=== PATIENT | female | born 1990 | race Caucasian/White ===

== ENCOUNTER 2020-03-20 06:52 | Inpatient (IN) | payer OTHER ==
[2020-03-20] MEDS ORDERED: CARBOPROST TROMETHAMINE 250 MCG/ML 1 ML AMP IM PRN (07:12)
[2020-03-20] MEDS ORDERED: TERBUTALINE 1 MG/ML VIAL SQ PRN (07:12)
[2020-03-20] MEDS ORDERED: METHYLERGONOVINE 0.2 MG/ML 1 ML AMP IM PRN (07:12)
[2020-03-20] MEDS ORDERED: OXYTOCIN 10 UNIT/ML 1 ML VIAL IM PRN (07:12)
[2020-03-20] MEDS ORDERED: LIDOCAINE 0.5% (PF) 5 MG/ML (50 ML SDV) SQ PRN (07:12)
[2020-03-20] MEDS: LACTATED RINGERS 1,000 ML IV SCH ×2 (07:41→08:11)
[2020-03-20 08:12] LABS: Basophils # (A) 0.1 k/uL (0-0.2); Basophils % (A) 0 %; Eosinophils # (A) 0.1 k/uL (0-0.7); Eosinophils % (A) 0 %; HCT 38.5 % (34.0-46.0); HGB 12.6 gm/dL (11.4-16.0); Lymphocytes # (A) 2.5 k/uL (1.0-4.8); Lymphocytes % (A) 9 %; MCH 30.6 pg (25.0-35.0); MCHC 32.7 g/dL (31.0-37.0); MCV 93.7 fL (80.0-100.0); Mean Platelet Volume 8.3; Monocytes # (A) 1.1 k/uL (0-1.0); Monocytes % (A) 4 %; Neutrophils # (A) 22.6 k/uL (1.3-7.7); Neutrophils % (A) 85 %; Platelet Count 369 k/uL (150-450); RBC 4.11 m/uL (3.80-5.40); RDW 13.9 % (11.5-15.5); WBC 26.6 k/uL (3.8-10.6)
[2020-03-20] MEDS ORDERED: ROPIVACAINE 100 MG, fentaNYL (PF) 200 MCG in SODIUM CHLORIDE 0.9% 76 ML EPIDURAL ONE (08:26)
[2020-03-20] MEDS ORDERED: OXYTOCIN 30 UNITS/500 ML NS 30 UNIT in SALINE 1 500ML.BAG IV SCH (10:15)
[2020-03-20] MEDS ORDERED: CLINDAMYCIN 900 MG in DEXTROSE 5% IN WATER 50 ML IVPB SCH ×2 (10:30)
[2020-03-20] MEDS ORDERED: BUTORPHANOL 1 MG/ML 1 ML VIAL IV PRN (11:23)
[2020-03-20] MEDS ORDERED: HYDROcodone/APAP 5-325MG 1 EACH TAB PO PRN (13:03)
[2020-03-20] MEDS ORDERED: BENZOCAINE/MENTHOL SPRAY 1 GM/SPRAY AEROSOL TOPICAL PRN (13:03)
[2020-03-20] MEDS ORDERED: diphenhydrAMINE 50 MG/ML 1 ML VIAL IVP PRN ×2 (13:03)
[2020-03-20] MEDS ORDERED: MEASLES-MUMPS-RUBELLA VACC/PF 12,500 UNIT/0.5 ML VIAL SQ ONE (13:03)
[2020-03-20] MEDS ORDERED: diphenhydrAMINE 25 MG CAP PO PRN (13:03)
[2020-03-20] MEDS ORDERED: diphenhydrAMINE 50 MG CAP PO PRN (13:03)
[2020-03-20] MEDS ORDERED: ACETAMINOPHEN TAB 325 MG TAB PO PRN (13:03)
[2020-03-20] MEDS ORDERED: IBUPROFEN 600 MG TAB PO PRN (13:03)
[2020-03-20] MEDS ORDERED: HYDROCORTISONE 2.5% RECTAL CREAM 30 GM TUBE RECTAL PRN (13:03)
[2020-03-20] MEDS ORDERED: LANOLIN CREAM 5 GM TUBE TOPICAL PRN (13:03)
[2020-03-20] MEDS ORDERED: ZOLPIDEM 5 MG TAB PO PRN (13:03)
[2020-03-20] MEDS ORDERED: SIMETHICONE 80 MG CHEWABLE PO PRN (13:03)
[2020-03-20] MEDS ORDERED: WITCH HAZEL 1 EACH MED..PAD TOPICAL PRN (13:03)
--- NOTE | 2020-03-20 13:05 | P.HPOB ---
History of Present Illness H&P Date: 03/20/20 Chief Complaint: Intrauterine at term: Active labor Patient is a 29-year-old at 39 weeks gestation who arrived in active labor. Her cervix was dilated to 5 cm and she was admitted for labor. Artificial rupture membranes was performed and clear fluid is noted. A category 1 tracing is noted and she is luz every approximately 4 minutes. Her Precis course was, complicated by an episode of throwing up blood and she was seen by GI and was started on Protonix and Keflex. She continued this through the remainder of the and did not have any other significant issues. Her course otherwise remained unremarkable. Pertinent labs A+ blood type Rh and it was negative. Rubella is nonimmune. Hepatitis B surface antigen/RPR/quadruple screen are all negative. All questions are answered for her and she plans to use epidural for analgesia. Past Medical History Past Medical History: No Reported History History of Any Multi-Drug Resistant Organisms: None Reported Past Surgical History: Orthopedic Surgery Past Anesthesia/Blood Transfusion Reactions: No Reported Reaction Past Psychological History: No Psychological Hx Reported Smoking Status: Current every day smoker Past Alcohol Use History: None Reported Past Drug Use History: None Reported - Past Family History Father History Unknown: Yes Mother History Unknown: Yes Medications and Allergies Home Medications Medication Instructions Recorded Confirmed Type Pnv No.95/Ferrous Fum/Folic AC 1 each PO DAILY 03/20/20 03/20/20 History [ Multivitamin Tablet] Allergies Allergy/AdvReac Type Severity Reaction Status Date / Time Penicillins Allergy Anaphylaxis Verified 03/20/20 07:04 Exam Osteopathic Statement: *. No significant issues noted on an osteopathic structural exam other than those noted in the History and Physical/Consult. Vital Signs Temp Pulse Resp BP Pulse Ox 03/20/20 07:21 97.0 F L 83 16 121/62 03/20/20 07:05 96.4 F L 88 18 131/67 97 03/20/20 07:03 96.5 F L 88 16 131/67 100 Intake and Output 03/19/20 03/20/20 03/20/20 22:59 06:59 14:59 Other: Weight 102.512 kg - OBG Physical Exam Breast: both: normal (no masses) Abdomen: bowel sounds normal, no diffuse tenderness, no bruit present, no guarding noted, no hepatomegaly, no splenomegaly, no mass Vulva: both: normal Vagina: normal moisture, no discharge Cervix: no lesion, no discharge Uterus: normal size, normal contour Adnexa: both: normal Anus/Rectum: normal perianal skin, no rectal mass, no hemorrhoids, heme negative Results Result Diagrams: 03/20/20 07:21 Abnormal Lab Results - Last 24 Hours (Table) 03/20/20 Range/Units 07:21 WBC 26.6 H (3.8-10.6) k/uL Neutrophils # 22.6 H (1.3-7.7) k/uL Monocytes # 1.1 H (0-1.0) k/uL
--- NOTE | 2020-03-20 13:06 | P.PROBDLV ---
Vaginal Delivery Note - . Vaginal Delivery Note: Patient progressed complete and pushed with spontaneous vaginal delivery of a viable male over a right vaginal wall laceration. Following delivery of the head a nuchal cord 1 was easily reduced from right occiput anterior position then interim posterior shoulders were easily delivered with and mouth nares were then bulb suctioned. Umbilical cord was clamped cut in usual fashion after 30 seconds of pulsation and with the baby on mother's abdomen. Pressure personnel was present to assume care. Placenta was then delivered intact and Pitocin was added to the IV. A right vaginal wall laceration was then repaired with 3-0 Vicryl following 1% Xylocaine. scores were 8 and 10 at one and 5 minutes [place] and the weight was 7 lbs. 2 oz. Both mother and baby are stable following delivery.
[2020-03-20] MEDS ORDERED: OXYTOCIN 20 UNITS/1000 ML NS 1,000 ML IV SCH (13:15)
[2020-03-20] MEDS: SENNOSIDES-DOCUSATE SODIUM 1 EACH TAB PO SCH (20:13)
[2020-03-21 05:41] LABS: Basophils # (A) 0.1 k/uL (0-0.2); Basophils % (A) 0 %; Eosinophils # (A) 0.2 k/uL (0-0.7); Eosinophils % (A) 1 %; HCT 33.9 % (34.0-46.0); HGB 10.8 gm/dL (11.4-16.0); Lymphocytes # (A) 3.4 k/uL (1.0-4.8); Lymphocytes % (A) 15 %; MCH 30.2 pg (25.0-35.0); MCV 94.2 fL (80.0-100.0); Mean Platelet Volume 8.2; Monocytes # (A) 1.3 k/uL (0-1.0); Monocytes % (A) 6 %; Neutrophils # (A) 17.4 k/uL (1.3-7.7); Neutrophils % (A) 77 %; Platelet Count 343 k/uL (150-450); RDW 14.1 % (11.5-15.5); WBC 22.7 k/uL (3.8-10.6)
--- NOTE | 2020-03-21 08:49 | P.DS ---
Providers Date of admission: 03/20/20 07:12 Expected date of discharge: 03/21/20 Attending physician: Vance Anderson Primary care physician: Stated None Hospital Course: Patient is doing very well post day 1. She is ambulating, voiding and tolerating her diet. She voices no complaints. Vital signs are stable and afebrile. Heart regular, lungs clear, extremities without pain. Abdomen soft uterus is firm and lochia is reported be light. Assessment day 1. Plan discharged home follow up with me in 6 weeks. She is otherwise stable for discharge today. Prescription for Motrin was 40 to her pharmacy. Patient Condition at Discharge: Good Plan - Discharge Summary New Discharge Prescriptions: New Ibuprofen [Motrin] 600 mg PO Q6HR PRN #30 tab PRN Reason: Pain No Action Pnv No.95/Ferrous Fum/Folic AC [ Multivitamin Tablet] 1 each PO DAILY Discharge Medication List Pnv No.95/Ferrous Fum/Folic AC [ Multivitamin Tablet] 1 each PO DAILY 03/20/20 [History] Ibuprofen [Motrin] 600 mg PO Q6HR PRN #30 tab 03/21/20 [Rx] Follow up Appointment(s)/Referral(s): Vance Anderson DO [Doctor of Osteopathic Medicine] - 6 Weeks Activity/Diet/Wound Care/Special Instructions: No heavy lifting, limit stairs and driving, and pelvic rest. If any high temperatures, heavy bleeding, or severe pain call my office Discharge Disposition: HOME SELF-CARE
[2020-03-21 09:27] VITALS: RESP 18
[2020-03-21] MEDS: SENNOSIDES-DOCUSATE SODIUM 1 EACH TAB PO SCH (09:28)
[2020-03-21 16:56] VITALS: BP 111/67; PULSE 82; TEMP 98.6
== END 2020-03-21 18:40 | disposition home or self-care (01) | DRG 806 ==
LOC: FBPOP 06:52 → 4FBP 07:12
PROVIDERS: ADMIT Obstetrics & Gynecology; ATTEND Obstetrics & Gynecology
PROC: 3E0R3BZ Introduction of Anesthetic Agent into Spinal Canal, Percutaneous Approach (ICD-10-PCS; principal; 2020-03-20)
PROC: 10E0XZZ Delivery of Products of Conception, External Approach (ICD-10-PCS; principal; 2020-03-20)
PROC: 00HU33Z Insertion of Infusion Device into Spinal Canal, Percutaneous Approach (ICD-10-PCS; principal; 2020-03-20)
PROC: 0KQM0ZZ Repair Perineum Muscle, Open Approach (ICD-10-PCS; principal; 2020-03-20)
DX: O69.81X0 Labor and delivery complicated by cord around neck, without compression, not applicable or unspecified (principal); O71.4 Obstetric high vaginal laceration alone; Z37.0 Single live birth; O99.334 Smoking (tobacco) complicating childbirth; F17.200 Nicotine dependence, unspecified, uncomplicated; Z3A.39 39 weeks gestation of pregnancy; Z88.0 Allergy status to penicillin
CPT/HCPCS: 59025; 84112; 85025; 86850; 86900; 86901; 87635; 90707; 99213

== ENCOUNTER 2021-06-20 12:06 | Day surgery (SDC) | payer BC, OTHER ==
[2021-06-17 11:11] VITALS: BMI 37.7
[~2021-06-20 12:06] MED LIST: LACTATED RINGERS 1,000 ML IV SCH; LIDOCAINE 1% (10MG/ML) FOR IV START INTRADERMA PRN
[2021-06-20 12:31] VITALS: RESP 16; TEMP 97.3
[2021-06-20] MEDS ORDERED: PROPOFOL 10 MG/ML 20 ML VIAL IV ONE (13:11)
[2021-06-20] MEDS ORDERED: LIDOCAINE 1% INJ 10MG/ML (20 ML MDV) ONE (13:11)
--- NOTE | 2021-06-20 13:30 | P.PCN ---
Date of Procedure: 06/20/21 Preoperative Diagnosis: GERD Postoperative Diagnosis: Gastritis Duodenitis Procedure(s) Performed: EGD with biopsy Anesthesia: DUANE Surgeon: Kelly Amin Pathology: other (Biopsies of duodenum, antrum, esophagus) Condition: stable Disposition: same day Indications for Procedure: 31-year-old female presented to the surgery clinic with complaints of heartburn and reflux. She was started on omeprazole, however states that this gave her side effects she was uncomfortable with and did not continue the medication. She presents today for upper endoscopy for further evaluation. Risks, benefits and alternatives were provided to the patient. She did provide consent. Operative Findings: Inflammatory changes of the antrum and duodenum Description of Procedure: The patient was brought to the endoscopy suite and placed in left lateral decubitus position and adequate sedation was achieved using conscious sedation. A bite block was placed and an endoscope was placed in the oropharynx and advanced under endoscopic visualization. The endoscope was advanced through the esophagus into the stomach, through the gastric antrum and into the pylorus. The third portion of duodenum was visualized. The endoscope was then slowly withdrawn. The first portion duodenum was noted to have inflammatory changes. Biopsies were taken. The antrum was noted to have inflammatory changes. Biopsies were taken. The gastric body distended normally and the gastric folds appear normal and flattened with insufflation. A retroflexed view of the fundus and GE junction revealed no significant hiatal hernia. The esophagus appeared endoscopically normal. Biopsies were taken. Excess air was removed and the scope was withdrawn and the procedure was completed. The patient was then sent to postanesthesia care unit in stable condition.
[2021-06-20 13:43] VITALS: BP 116/71; PULSE 63
== END 2021-06-20 14:05 | disposition home or self-care (01) ==
LOC: ORWHC2ENDO 12:06
PROVIDERS: ATTEND Surgery
DX: K29.50 Unspecified chronic gastritis without bleeding (principal); K29.80 Duodenitis without bleeding; B96.81 Helicobacter pylori [H. pylori] as the cause of diseases classified elsewhere
CPT/HCPCS: 43239; 81025; 88305; 88342; J2001; J2704